=== PATIENT | female | born 1970 | race American Indian/Alaskan Native ===

== ENCOUNTER 2020-09-01 01:19 | Emergency (ER) | payer SELFPAY ==
[2020-09-01] MEDS ORDERED: traMADol 50 MG TAB PO ONE (02:02)
[2020-09-01 02:03] VITALS: BP 114/48
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
== END 2020-09-01 05:16 | disposition home or self-care (01) ==
LOC: ED 01:19
DX: S39.012A Strain of muscle, fascia and tendon of lower back, initial encounter (principal); Z90.710 Acquired absence of both cervix and uterus; Z79.899 Other long term (current) drug therapy; V49.59XA Passenger injured in collision with other motor vehicles in traffic accident, initial encounter; Y93.89 Activity, other specified; Y92.488 Other paved roadways as the place of occurrence of the external cause; Y99.8 Other external cause status
CPT/HCPCS: 99282